=== PATIENT | female | born 1995 | race Caucasian/White ===

== ENCOUNTER 2020-04-20 16:05 | Emergency (ER) | payer OTHER ==
[2020-04-20] MEDS ORDERED: Ketorolac 10 MG Tab PO ONE (16:06)
--- NOTE | 2020-04-20 16:25 | EDM.PDOC ---
ED HPI GENERAL MEDICAL PROBLEM - General Stated Complaint: R ANKLE PAIN Time Seen by Provider: 04/20/20 16:20 Source of Information: Reports: Patient History Limitations: Reports: No Limitations - History of Present Illness INITIAL COMMENTS - FREE TEXT/NARRATIVE: 24-year-old female who reports that she had surgery on her right ankle yesterday by a surgeon at [facility]. Fairly was a same day surgery and she was discharged about 10:30 to 11 AM yesterday. She reports that when she came out of surgery she fairly severe pain and she reports that they had to give her Dilaudid and were having trouble getting her pain under control and in the recovery room they also gave her Percocet 2 by mouth and she reports "I told him that Percocet doesn't work for me" and since discharge to home she has had pain that has been persisting that is a burning and stinging type pain and feels hot. She reports that she had gotten some relief with Flexeril but she has had no relief today and the pain is a 10/10 and not being relieved by the Percocet that she has. She reports that she called the doctor environmental sampling technician for her surgeon and was told to "come to an emergency department to get medications". The patient denies any fever. She's had no difficulty breathing. No abdominal pain. She does have some stiffness and her neck. No chest pain. No nausea or vomiting. There are no other associated signs or symptoms. There are no other modifying factors. 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: Reports: Other Medication(s) (Percocet, Flexeril area) R lateral ankle Pain Score (Numeric/FACES): 10 - Related Data Allergies Allergy/AdvReac Type Severity Reaction Status Date / Time No Known Allergies Allergy Verified 04/20/20 16:21 Home Meds: Home Meds Acetaminophen/oxyCODONE [Percocet 325-5 MG] 1 each PO Q4H PRN 04/20/20 [History] Cholecalciferol (Vitamin D3) [Vitamin D3] 1,000 unit PO DAILY 04/20/20 [History] Cyclobenzaprine [Flexeril] 10 mg PO TID PRN 04/20/20 [History] Escitalopram Oxalate [Lexapro] 10 mg PO DAILY 04/20/20 [History] Fish Oil/[place]-3 Fatty Acids [Fish Oil 1,000 MG] 1,000 mg DAILY 04/20/20 [ History] Glucosam/Chondr/Collagn/Hyalur [Glucosamine & Chondroitin Cap] 2 cap DAILY 04/20 [History] Ketorolac [Toradol] 10 mg PO Q6H PRN #12 tab 04/20/20 [Rx] Multivitamin [Multivitamins] 1 each PO DAILY 04/20/20 [History] oxyCODONE 5 mg PO Q6H PRN 04/20/20 [History] Past Medical History Genitourinary History: Reports: Renal Calculus 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 ED ROS GENERAL - Review of Systems Review Of Systems: See Below Constitutional: Reports: No Symptoms HEENT: Reports: No Symptoms, Other (Some posterior neck stiffness) Respiratory: Reports: No Symptoms Cardiovascular: Reports: No Symptoms Endocrine: Reports: No Symptoms GI/Abdominal: Reports: No Symptoms : Reports: No Symptoms Musculoskeletal: Reports: Joint Pain (Right ankle pain) Skin: Reports: No Symptoms Neurological: Reports: No Symptoms Hematologic/Lymphatic: Reports: No Symptoms Immunologic: Reports: No Symptoms ED EXAM, GENERAL - Physical Exam Exam: See Below Exam Limited By: No Limitations General Appearance: Alert, WD/WN, Moderate Distress (Appears in pain) Eye Exam: Bilateral Eye: EOMI, Normal Inspection, PERRL Ears: Normal External Exam, Hearing Grossly Normal Ear Exam: Bilateral Ear: Auricle Normal Nose: Normal Inspection, Normal Mucosa, No Blood Throat/Mouth: Normal Inspection, Normal Lips, Normal Oropharynx, Normal Voice, No Airway Compromise Head: Atraumatic, Normocephalic Neck: Normal Inspection, Supple, Non-Tender, Full Range of Motion Respiratory/Chest: No Respiratory Distress, Lungs Clear, Normal Breath Sounds, No Accessory Muscle Use, Chest Non-Tender Cardiovascular: Normal Peripheral Pulses, No Edema, Tachycardia Peripheral Pulses: 2+: Radial (L), Radial (R), Dorsalis Pedis (L), Dorsalis Pedis (R) GI/Abdominal: Normal Bowel Sounds, Soft, Non-Tender Back Exam: Normal Inspection, Full Range of Motion Extremities: No Pedal Edema, Normal Capillary Refill, Limited Range of Motion ( In her right ankle.), Other (Bandage over right ankle. She tells me that this bandage is not to be removed. There is some slight blood staining along the heel area but no evidence of active bleeding. No calf tenderness or swelling.) Neurological: Alert, Oriented, CN II-XII Intact, Normal Cognition, No Motor/ Sensory Deficits Psychiatric: Anxious Skin Exam: Warm, Dry, Intact, Normal Color, No Rash. No: Erythema, Increased Warmth Course - Vital Signs Last Recorded V/S: Last Vital Signs Temp 36.6 C 04/20/20 16:10 Pulse 103 H 04/20/20 16:22 Resp 24 H 04/20/20 16:22 BP 133/99 H 04/20/20 16:22 Pulse Ox 98 04/20/20 16:22 - Orders/Labs/Meds Meds: Medications Discontinued Medications Generic Name Dose Route Start Last Admin Trade Name Colby PRN Reason Stop Dose Admin Hydromorphone HCl 2 mg 04/20/20 16:37 04/20/20 16:52 Dilaudid IM 04/20/20 16:38 2 mg ONETIME ONE Administration Ketorolac Tromethamine 60 mg 04/20/20 16:37 04/20/20 16:52 Toradol IM 04/20/20 16:38 60 mg ONETIME ONE Administration Ondansetron HCl 4 mg 04/20/20 16:38 04/20/20 16:48 Zofran Odt PO 04/20/20 16:39 4 mg ONETIME ONE Administration - Re-Assessments/Exams Free Text/Narrative Re-Assessment/Exam: 04/20/20 16:35: A should appears to be in acute pain. She is currently taking Percocet for her pain. I will give the patient Dilaudid 2 mg IM and Toradol 60 mg IM. I will also give her Zofran 4 mg ODT. The right ankle does not appear to have any bleeding. There is no evidence of infection. There is good perfusion to the toes and there is no calf tenderness. I am unsure why she is having the pain in her ankle post surgical. I told her that she would need to follow-up with her surgeon and if the pain continues to be uncontrolled, I recommended that she seek evaluation where her surgeon would be. I told her that I would not give her anything stronger than Percocet for pain but I would give her a prescription of Toradol he could use in addition to the Percocet for pain. I once again stressed to her that if her pain continues to be uncontrolled, if she develops fever, trouble breathing, increased swelling or redness in the leg or ankle or evidence of ongoing bleeding, that she should be reevaluated in an emergency department at that time. It should be noted that her rechecked pulse was 103. Departure - Departure Time of Disposition: 17:05 Disposition: Home, Self-Care 01 Condition: Good Clinical Impression: Postoperative pain of extremity Right ankle pain Qualifiers: Chronicity: acute Qualified Code(s): M25.571 - Pain in right ankle and joints of right foot - Discharge Information Prescriptions: Ketorolac [Toradol] 10 mg PO Q6H PRN #12 tab PRN Reason: Pain Instructions: Ankle Pain, Pain Medicine Instructions, [id number] Additional Instructions: The exam of your right foot and ankle is reassuring. You appear to have good perfusion and there does not appear to be any infection at this time. There also does not appear to be any active bleeding at this time. I am unsure you are having such severe pain in your right ankle. You should continue to elevate your right ankle higher than her heart as often as possible. You may also apply ice packs intermittently to the area. You should continue to use the pain medication that you have as needed. I have also given you a prescription of Toradol that you may use in addition to the Percocet that you have for your pain. As we discussed, if you aren't having continued uncontrolled and severe pain in your ankle you should seek re-evaluation and it may be beneficial for you to pain at the same facility where your surgeon or a surgeon environmental sampling technician for your surgeon could evaluate you as well. In addition, you should come back to an emergency department for difficulty breathing, chest pain, redness or increased swelling in the area, bleeding from the area, cool or blue toes on your right foot or any other concerning sign or symptom. Sepsis Event Note - Focused Exam Vital Signs: Vital Signs Temp Pulse Resp BP Pulse Ox 04/20/20 16:22 103 H 24 H 133/99 H 98 04/20/20 16:10 36.6 C 146 H 36 H 147/87 H 98 Date Exam was Performed: 04/20/20 Time Exam was Performed: 17:05
[2020-04-20] MEDS ORDERED: HYDROmorphone 2 MG/ML SDV IM ONE (16:37)
[2020-04-20] MEDS ORDERED: Ketorolac 60 MG/2 ML SDV IM ONE (16:37)
[2020-04-20] MEDS ORDERED: Ondansetron 4 MG Tab.DIS PO ONE (16:38)
== END 2020-04-20 17:15 | disposition home or self-care (01) ==
LOC: FB.ED 16:05
DX: M25.571 Pain in right ankle and joints of right foot (principal); G89.18 Other acute postprocedural pain; F41.9 Anxiety disorder, unspecified; F32.9 Major depressive disorder, single episode, unspecified; Z79.899 Other long term (current) drug therapy
CPT/HCPCS: 96372; 99283; A9270-GY; J1170; J1885